=== PATIENT | female | born 1960 | race Caucasian/White ===

== ENCOUNTER → 2017-10-15 | Outpatient (CLI) | payer OTHER | LOC: LAB 08:36 | DX: R19.5 Other fecal abnormalities (principal) ==

== ENCOUNTER → 2018-02-13 | Outpatient (CLI) | payer OTHER | LOC: MAMMO 15:51 | DX: Z12.31 Encounter for screening mammogram for malignant neoplasm of breast (principal); Z01.419 Encounter for gynecological examination (general) (routine) without abnormal findings ==

== ENCOUNTER → 2020-05-03 | Outpatient (CLI) | payer OTHER | LOC: RAD 09:00 | DX: K76.9 Liver disease, unspecified (principal); R16.0 Hepatomegaly, not elsewhere classified | CPT/HCPCS: Q9967 ==

== ENCOUNTER → 2020-05-07 | Outpatient (CLI) | payer OTHER | LOC: RAD 13:59 | DX: E04.1 Nontoxic single thyroid nodule (principal) ==